=== PATIENT | male | born 1990 | race Caucasian/White ===

== ENCOUNTER 2021-05-28 09:28 | Emergency (ER) | payer SELFPAY ==
[2021-05-28 09:41] VITALS: BP 144/60; PULSE 84; RESP 18; TEMP 36.4; O2SAT 100; BMI 25.1
--- NOTE | 2021-05-28 10:01 | W.ED.BACK ---
HPI - Back Pain/Injury General: Chief Complaint: Back Pain/Injury Stated Complaint: Back Pain Time Seen by Provider: 05/28/21 09:32 History of Present Illness: Patient complains about right-sided back pain. Patient had travel down from [place] did attend the and then is on his way back. He lifted a large tote the other day and felt a pull in his back and his back's continue to hurt him is worsening every day. Patient has history of not being very kind his back over the years. Patient has spasms when he makes certain movements. Denies any numbness tingling or bowel or bladder problems. Associated symptoms: Deny abdominal pain, chills, fever(s), nausea or vomiting Review of Systems Const: Denies: fever(s), chills or body aches Eyes: Denies: eye discomfort ENMT: Denies: throat pain Card: Denies: chest pain Resp: Denies: dyspnea GI: Denies: abdominal pain, nausea or vomiting Musc: Reports: back pain (Spasms right side of his back with movements) Skin/Breast: Denies: rash Neuro: Denies: headache(s) Psych: Denies: depression or suicidal ideation Physical Exam Const: COMMON NORMALS: no acute distress, patient oriented x3 and alert HENMT: COMMON NORMALS: normocephalic and external ears normal HEAD & SCALP: normocephalic EXTERNAL EAR: Yes external ears normal Eye: COMMON NORMALS: EOMs intact bilaterally Neck/C-Spine: COMMON NORMALS: no JVD Resp: COMMON NORMALS: normal respiratory effort and No use of accessory muscles Cardio: COMMON NORMALS: no JVD GI: INSPECTION: Yes normal to inspection Back/Pelvis: LUMBAR SPINE/LOWER BACK: Yes paraspinal muscle tenderness Lumbar paraspinal muscle tenderness: right, Yes paraspinal muscle spasm, Yes straight leg raise positive right Straight leg raise positive details right: at 30 degrees and Yes straight leg raise positive left Straight leg raise positive details left: at 30 degrees Extremity: COMMON NORMALS: normal to inspection and full ROM Neuro: COMMON NORMALS: patient oriented x3 SENSORIUM/ORIENTATION: Yes alert Psych: COMMON NORMALS: mental status grossly normal Skin: COMMON NORMALS: no rashes or lesions noted GENERAL SKIN EXAM: no rashes or lesions noted Course Vital Signs: Vital signs: Vital Signs Temperature 97.6 F 05/28/21 09:41 Pulse Rate 84 05/28/21 09:41 Respiratory Rate 18 05/28/21 09:41 Blood Pressure 144/60 05/28/21 09:41 Pulse Oximetry 100 05/28/21 09:41 MDM - Back Pain/Injury Medical Decision Making Acute lumbar strain/back pain. Discharge Plan Discharge Patient Disposition: Home Clinical Impression: Strain of lumbar region Condition: Stable Prescriptions: New prednisone 20 mg tablet 20 mg PO DAILY Qty: 7 0RF Celebrex 100 mg capsule 100 mg PO BID Qty: 20 0RF cyclobenzaprine 5 mg tablet 5 mg PO TID PRN (Reason: muscle spasm) Qty: 10 0RF Discharge Orders: Discharge ED (Routine); Ordered 05/28/21 Ordered By: Wesly Dinh Discharge Diet: Usual diet Discharge Activity: Increase activity as tolerated Patient Instructions: Low Back Strain (ED), Lower Back Exercises (ED), Core Strengthening Exercises (ED) Activity Restrictions/Additional Instructions: Follow-up with medical provider as directed. Take medications as prescribed. Return to the ER or your medical provider if condition worsens. Please read and understand discharge instructions. If any questions ask please. No lifting over 10 pounds for next 3 to 4 weeks. I recommend a visit to chiropractor. Coding Level of Care Code ED [employer]er for Fernando Spencer
[2021-05-28] MEDS: methylPREDNISolone (DEPO) 80 MG/ML INJ 1 mL IM (10:08)
[2021-05-28] MEDS: orphenadrine 30 mg/mL Inj 2 mL 60 MG IM (10:09)
[2021-05-28] MEDS: CELEcoxib 200 mg Capsule 400 MG PO (10:09)
[2021-05-28 10:18] VITALS: BP 144/60; PULSE 84; RESP 18; O2SAT 100
== END 2021-05-28 10:19 | disposition home or self-care (01) ==
PROVIDERS: Emergency Provider Nurse Practitioner Family
DX: S39.012A Strain of muscle, fascia and tendon of lower back, initial encounter (principal); X50.0XXA Overexertion from strenuous movement or load, initial encounter
CPT/HCPCS: 96372; 99283; J1040; J2360